=== PATIENT | female | born 1985 | race Two or more races ===

== ENCOUNTER → 2023-03-11 10:01 | Outpatient (BNVA) | payer MEDICAID, SELFPAY | PROVIDERS: Visit Provider Physician Assistant ==

== ENCOUNTER → 2023-07-15 10:28 | Outpatient (BNVA) | payer OTHER, SELFPAY | PROVIDERS: Visit Provider Physician Assistant Surgical ==

== ENCOUNTER 2023-09-14 08:18 | Outpatient (AMB) | payer OTHER, SELFPAY ==
--- NOTE | 2023-09-14 11:20 | MHC.OFFVISWM ---
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 Son No problems noted. Son No problems noted. Daughter Asthma Social History Alcohol intake: never Patient Tobacco Use Status: Never used Tobacco Coding
--- NOTE | 2023-09-14 11:38 | MHC.OFFVISWM ---
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 No Known Allergies Allergy (Verified 09/14/23 11:38) Medication List - Last Reconciled 09/14/23 by Marcellus Davis MD adalimumab (Humira(CF) Pen) mg subcut albuterol sulfate 90 mcg/actuation (Ventolin HFA) 2 puffs inhalation Q4-6H PRN albuterol sulfate mg inhalation melatonin 5 mg PO BEDTIME metformin 500 mg PO BID sertraline 100 mg PO DAILY trazodone 50 mg PO BEDTIME 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* 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 Details Start time: 11.30am, End time: 12.17pm ?I spent 42 minutes speaking with the patient on the phone plus an additional 5 minutes reviewing and updating records for a total of 47 minutes HPI Comments History of Present Illness Details Previous weight loss efforts: self diets Wakes up: 5am, Sleeps: 10pm Breakfast: 6am (yogurt) Lunch: 12pm (sandwich, or rice with chicken) Dinner: 6pm (rice and chicken) Snacks: 7-8pm crackers Exercise: has a home stationary bike and outside walking Fluids: Coffee 1 cp/day (sugar), tea: none, soda: Gingerale, ETOH: none, juice: 4 glasses per day PFSH Medical History (Updated 09/14/23 @ 11:50 by Marcellus Davis MD) Depression Arthritis Insomnia Non-insulin dependent type 2 diabetes mellitus Asthma Obesity Surgical History Hx of section Hx of cholecystectomy Family History Mother Lupus Arthritis Heart problem Asthma Father No problems noted. Son No problems noted. Son No problems noted. Daughter Asthma Social History Alcohol intake: never Patient Tobacco Use Status: Never used Tobacco Assessment & Plan Assessment & Plan (1) Obesity: Code(s): E66.9 - Obesity, unspecified Qualifiers: Obesity type: due to excess calories Obesity classification: adult class 2 (BMI 35 - 39.9) Serious obesity comorbidity presence: with serious comorbidity Body mass index: BMI 37.0-37.9 Qualified Code(s): E66.01 - Morbid (severe) obesity due to excess calories; Z68.37 - Body mass index [BMI] 37.0-37.9, adult Plan: 1.? Plan for lap sleeve gastrectomy. If diaphragmatic or ventral hernias are present at time of surgery, these will be repaired laparoscopically as well. Risks and complications were discussed in detail including possible conversion to an open procedure, anastomotic leak, bleeding requiring transfusion, small bowel obstruction, , DVT and pulmonary embolism, cardiac, or pulmonary complications, as senior living complications such as anastomotic ulcer, insufficient weight loss and vitamin deficiencies. I emphasized the importance of close follow-up, adherence to instructions and good communication. 2. Nutritional counseling. Start with 2 Isopure INFUSIONS protein (buy at [employer]) shakes (HALF scoop EACH in 8oz water) at 6am-8am and 9am-11am, 2 protein bars (Zone Perfect protein bars, buy at [employer]) at 12pm-2pm and 3pm-5pm, dinner at 6pm (8 forks of protein and 8 forks of salad/vegetables) AND one more protein bar after dinner at 8pm-10pm. So you do 2 protein shakes, p3 rotein bars and one meal per day. Meal to include lean meat (beef, fish, pork, turkey, chicken), or serbian yogurt, or egg whites, or beans with a salad with olive oil and fruits (berries, pears, apples, kiwi). Avoid salt, breads, potatoes, rice, pasta, desserts. 3. Each shake would be drunk slowly, like coffee in a period of 2 hours. You may add your coffee into your shakes if flavord match. 4. Cut each bar in 4 pieces and eat each piece in 30min ?to make each bar last 2 hours. 5. I emphasized the importance of measuring accurately the food portion and measure it when serving the food in plate 6. The meal portions include 8 full-size forks of meat and 8 full-size forks of salad. You always eat the meat portion but you can replace up to 4 forks for salad/vegetables with rice, potatoes or pasta, or a fruit ?if you like. The less you do it the better weight loss will be. 7. One full-size fork is what it can be scooped on the fork without falling aside and not what can be bit with the fork. Use regular forks like those you find in a typical restaurant. 8.? Please send me weight measurements as soon as possible and then once a week. Always include your diet and exercise plan. 9. Start stationary bike at a resistance level of 2.0 Increase level by 1.0 every 3 min to a max level of 8.0. Stay at this level for 3 min and then return to level 2.0 and repeat same steps until 300 calories are burned. Velocity target is 12mph and heart rate is 145 bpm. Goal is to burn 2000 calories per week on exercise 10. The best choice would be to purchase a stationary bike, elliptical or treadmill at home that can track calories. Let me know if you do so I can give you an exercise plan. 11.?It is important of avoiding and for at least 18 months postoperatively and has been discussed at the infosession. 12. Goal is to lose at least 1.5-2lbs per week 13. Goal to lose 10% of your weight before surgery, which is about 22lbs. Ultimate weight goal: 195lbs before surgery 14. Please follow the diet plan exactly without any change. If you don't like something about the plan or you feel hungry you need to communicate with me so I can help you revise the plan. You should not change the plan yourself. Orders: Orders Insulin Today E11.9 - Type 2 diabetes mellitus without complications, E66.9 - Obesity, unspecified, J45.909 - Unspecified asthma, uncomplicated, Z68.37 - Body mass index [BMI] 37.0-37.9, adult Hemoglobin A1c Today E11.9 - Type 2 diabetes mellitus without complications, E66.9 - Obesity, unspecified, J45.909 - Unspecified asthma, uncomplicated, Z68.37 - Body mass index [BMI] 37.0-37.9, adult Complete Blood Count Auto Diff Today E11.9 - Type 2 diabetes mellitus without complications, E66.9 - Obesity, unspecified, J45.909 - Unspecified asthma, uncomplicated, Z68.37 - Body mass index [BMI] 37.0-37.9, adult IRON PROFILE Today E11.9 - Type 2 diabetes mellitus without complications, E66.9 - Obesity, unspecified, J45.909 - Unspecified asthma, uncomplicated, Z68.37 - Body mass index [BMI] 37.0-37.9, adult Comprehensive Met. Panel Today E11.9 - Type 2 diabetes mellitus without complications, E66.9 - Obesity, unspecified, J45.909 - Unspecified asthma, uncomplicated, Z68.37 - Body mass index [BMI] 37.0-37.9, adult Zinc Today E11.9 - Type 2 diabetes mellitus without complications, E66.9 - Obesity, unspecified, J45.909 - Unspecified asthma, uncomplicated, Z68.37 - Body mass index [BMI] 37.0-37.9, adult Vitamin B1 Today E11.9 - Type 2 diabetes mellitus without complications, E66.9 - Obesity, unspecified, J45.909 - Unspecified asthma, uncomplicated, Z68.37 - Body mass index [BMI] 37.0-37.9, adult Vitamin D 25-OH Total Today E11.9 - Type 2 diabetes mellitus without complications, E66.9 - Obesity, unspecified, J45.909 - Unspecified asthma, uncomplicated, Z68.37 - Body mass index [BMI] 37.0-37.9, adult US abdomen comp w elastography Today E11.9 - Type 2 diabetes mellitus without complications, E66.9 - Obesity, unspecified, J45.909 - Unspecified asthma, uncomplicated, Z68.37 - Body mass index [BMI] 37.0-37.9, adult XR chest 2V Today E11.9 - Type 2 diabetes mellitus without complications, E66.9 - Obesity, unspecified, J45.909 - Unspecified asthma, uncomplicated, Z68.37 - Body mass index [BMI] 37.0-37.9, adult FL upper GI w air Today E11.9 - Type 2 diabetes mellitus without complications, E66.9 - Obesity, unspecified, J45.909 - Unspecified asthma, uncomplicated, Z68.37 - Body mass index [BMI] 37.0-37.9, adult H Pylori Breath Test Today E11.9 - Type 2 diabetes mellitus without complications, E66.9 - Obesity, unspecified, J45.909 - Unspecified asthma, uncomplicated, Z68.37 - Body mass index [BMI] 37.0-37.9, adult Lipid Panel Today E11.9 - Type 2 diabetes mellitus without complications, E66.9 - Obesity, unspecified, J45.909 - Unspecified asthma, uncomplicated, Z68.37 - Body mass index [BMI] 37.0-37.9, adult Vitamin B12 and Folate Today E11.9 - Type 2 diabetes mellitus without complications, E66.9 - Obesity, unspecified, J45.909 - Unspecified asthma, uncomplicated, Z68.37 - Body mass index [BMI] 37.0-37.9, adult C Reactive Protein Today E11.9 - Type 2 diabetes mellitus without complications, E66.9 - Obesity, unspecified, J45.909 - Unspecified asthma, uncomplicated, Z68.37 - Body mass index [BMI] 37.0-37.9, adult Vitamin A Today E11.9 - Type 2 diabetes mellitus without complications, E66.9 - Obesity, unspecified, J45.909 - Unspecified asthma, uncomplicated, Z68.37 - Body mass index [BMI] 37.0-37.9, adult TSH reflex Free T4 Today E11.9 - Type 2 diabetes mellitus without complications, E66.9 - Obesity, unspecified, J45.909 - Unspecified asthma, uncomplicated, Z68.37 - Body mass index [BMI] 37.0-37.9, adult Ferritin Today E11.9 - Type 2 diabetes mellitus without complications, E66.9 - Obesity, unspecified, J45.909 - Unspecified asthma, uncomplicated, Z68.37 - Body mass index [BMI] 37.0-37.9, adult ECG 12 lead EKG Today E11.9 - Type 2 diabetes mellitus without complications, E66.9 - Obesity, unspecified, J45.909 - Unspecified asthma, uncomplicated, Z68.37 - Body mass index [BMI] 37.0-37.9, adult Referrals Behavioral Health Referral E11.9 - Type 2 diabetes mellitus without complications, E66.9 - Obesity, unspecified, J45.909 - Unspecified asthma, uncomplicated, Z68.37 - Body mass index [BMI] 37.0-37.9, adult Nutrition/Dietitian Referral E11.9 - Type 2 diabetes mellitus without complications, E66.9 - Obesity, unspecified, J45.909 - Unspecified asthma, uncomplicated, Z68.37 - Body mass index [BMI] 37.0-37.9, adult Telehealth Telehealth Location of provider rendering services: practice address Location of patient: address on file Patient Identification confirmed using: Name, : Yes Telehealth method: voice only Patient verbally consented to treatment: Yes Patient verbally consented to billing insurance company: Yes Patient informed of any privacy concerns related to visit: Yes Minutes spent on Phone/Video with Pt.: 47 Coding Level of Care Code Tele [facility] Pt Level 4 (45925) Diagnoses Class 2 severe obesity due to excess calories with serious comorbidity and body mass index (BMI) of 37.0 to 37.9 in adult E66.01; Z68.37 Obesity type: due to excess calories Obesity classification: adult class 2 (BMI 35 - 39.9) Serious obesity comorbidity presence: with serious comorbidity Body mass index: BMI 37.0-37.9 Time Spent (min) 47 Comment With a Bahamian speaking american sign language interpreter
[2023-09-14 11:51] VITALS: BMI 37.3
== END 2023-09-14 12:18 | disposition home or self-care (01) ==
LOC: HO.HBS 08:18
PROVIDERS: Visit Provider Surgery
DX: E66.01 Morbid (severe) obesity due to excess calories (principal); Z68.37 Body mass index [BMI] 37.0-37.9, adult
CPT/HCPCS: 99204

== ENCOUNTER → 2023-09-14 08:18 | Outpatient (BNVA) | payer OTHER, SELFPAY | PROVIDERS: Visit Provider Surgery ==

== ENCOUNTER 2023-09-18 09:03 | Outpatient (REF) | payer OTHER, SELFPAY ==
--- NOTE | ~2023-09-18 | XR_ITS ---
EXAMINATION: XR CHEST CLINICAL INFORMATION: Obesity unspecified. COMPARISON: None available. TECHNIQUE: 3 views of the chest. FINDINGS: Moderate degenerative changes in the thoracic spine. No pleural effusion. There is no gross pneumothorax. Heart size is normal. No focal consolidation to suggest pneumonia. XR/XR chest 2V IMPRESSION: No evidence of pneumonia.
--- NOTE | 2023-09-18 09:21 | ECG_ITS ---
Test Reason : OBESITY Blood Pressure : / mmHG Vent. Rate : 085 BPM Atrial Rate : 085 BPM P-R Int : 150 ms QRS Dur : 070 ms QT Int : 362 ms P-R-T Axes : 038 024 025 degrees QTc Int : 430 ms Normal sinus rhythm Normal ECG No previous ECGs available Referred By: Marcellus Davis Electronically Signed By:ELIE PAGE
[2023-09-18 09:23] LABS: MANUAL DIFF FLAG NO
[2023-09-18 09:33] LABS: Basophils Percent Auto 0.6 % (0-2); Eosinophils Absolute Auto 0.1 X10*3/uL (0.0-0.4); Eosinophils Percent Auto 2.1 % (0-4); Hematocrit 35.6 % (37.0-47.0); Hemoglobin 11.7 g/dl (12.0-16.0); Imm Gran Abs Auto 0.02 X10*3/uL (0.00-0.03); Imm Gran Pct Auto 0.3 % (0.0-0.4); Lymphocytes Percent Auto 30.3 % (20-40); Mean Corpuscular HGB Conc 32.9 g/dl (31.0-35.0); Mean Corpuscular Hemoglobin 26.5 pg (27.0-33.0); Mean Corpuscular Volume 80.5 fL (80.0-98.0); Mean Platelet Volume 9.9 fL (9.4-12.3); Monocytes Absolute Auto 0.4 X10*3/uL (0.1-1.2); Monocytes Percent Auto 5.7 % (2-11); Neutrophils Absolute Auto 4.1 x10*3/uL (2.0-8.3); Platelet Count 243 X10*3/uL (160-400); Red Blood Count 4.42 X10*6/uL (4.20-5.50); Red Cell Distribution Width 13.3 % (11.0-16.0); White Blood Count 6.7 X10*3/uL (4.8-10.8)
[2023-09-18 09:40] LABS: Estimated Average Glucose 134 mg/dL; Hemoglobin A1c % 6.3 % (<6.0)
[2023-09-18 10:05] LABS: Alanine Aminotransferase 59 U/L (0-31); Alkaline Phosphatase 110 U/L (39-117); Anion Gap 13 (12-20); Aspartate Amino Transferase 28 U/L (5-31); Bilirubin Total 0.3 mg/dL (0.0-1.0); Blood Urea Nitrogen 12 mg/dL (9-16); C Reactive Protein 1.19 mg/dL (< or = 0.50); Calcium 9.5 mg/dL (8.4-10.2); Carbon Dioxide 28 mmol/L (22-29); Chloride 104 mmol/L (96-108); Cholesterol 172 mg/dL (<200); Estimated Glomerular Filt Rate > 60; Glucose Random 141 mg/dL (60-115); HDL Cholesterol 47 mg/dL (>40); Iron 52 mcg/dL (30-160); LDL Cholesterol Calculated 102 mg/dL (<100); Percent Iron Saturation 17 % (15-50); Potassium 3.9 mmol/L (3.3-5.1); Sodium 141 mmol/L (135-145); Total Iron Binding Capacity 300 mcg/dL (228-428); Total Protein 7.7 g/dL (6.5-8.0); Triglycerides 118 mg/dL (<150); Unsaturated Iron Binding 248 ug/dL
[2023-09-18 10:27] LABS: Ferritin 69 ng/mL (10-122); Insulin 54 uU/mL (2-29); Vitamin D 25-OH Total 10.9 ng/mL (>30)
[2023-09-18 10:30] LABS: Folate 9.4 ng/mL (> or = 4.0); Vitamin B12 271 pg/mL (200-900)
[2023-09-22 02:19] LABS: Zinc 79 mcg/dL (60-130)
[2023-09-23 05:49] LABS: Vitamin A 40 mcg/dL (38-98)
[2023-09-23 14:36] LABS: H Pylori Breath Test Negative (Negative)
[2023-09-26 15:34] LABS: Vitamin B1 7 nmol/L (8-30)
== END 2023-09-18 09:04 | disposition home or self-care (01) ==
LOC: HO.XRAY 09:03
PROVIDERS: Visit Provider Surgery
DX: Z11.2 Encounter for screening for other bacterial diseases (principal); E66.9 Obesity, unspecified; Z68.37 Body mass index [BMI] 37.0-37.9, adult; J45.909 Unspecified asthma, uncomplicated; E11.9 Type 2 diabetes mellitus without complications
CPT/HCPCS: 36415; 71046; 80053; 80061; 82306; 82607; 82728; 82746; 83013; 83036; 83525; 83540; 84425; 84443; 84590; 84630; 85025; 86140; 93005

== ENCOUNTER → 2023-09-18 09:21 | Outpatient (BNV) | payer OTHER, SELFPAY | PROVIDERS: Visit Provider Internal Medicine | DX: E66.9 Obesity, unspecified (principal); Z68.37 Body mass index [BMI] 37.0-37.9, adult | CPT/HCPCS: 93010 ==

== ENCOUNTER → 2023-10-02 08:10 | Outpatient (BNVA) | payer OTHER, SELFPAY | PROVIDERS: Visit Provider Surgery ==

== ENCOUNTER 2023-10-12 09:52 | Outpatient (AMB) | payer OTHER, SELFPAY ==
--- NOTE | 2023-10-12 10:01 | MHC.AMNUTRGE ---
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 Encouraged she discuss with surgeon. She doesn't enjoy vegetables. I provided recipe resources Last night for dinner ate a sandwich with butter and cheese. Educated pt on adding foods to her meals such as protein and veg. [facility] online classes: none , pt was having issues accessing them Dietary counseling reduction Diagnosis Nutrition problem #1 overweight/obesity As related to (etiology) #1 excess energy intake and physical inactivity As evidenced by (sign/symptom) #1 high BMI Monitoring/Goals Nutrition problem monitoring total energy intake, level of knowledge/skill, total PRO intake, total CHO intake, weight and oral fluids Outcome progress progressing Learning/Education Readiness to learn good Stages of change action Educational materials provided Yes Most Recent Diabetes Results: Cholesterol 172 mg/dL (<200) 09/18/23 HDL Cholesterol 47 mg/dL (>40) 09/18/23 Triglycerides 118 mg/dL (<150) 09/18/23 Creatinine 0.73 mg/dL (0.5-1.4) 09/18/23 Blood Urea Nitrogen 12 mg/dL (9-16) 09/18/23 Sodium 141 mmol/L (135-145) 09/18/23 Potassium 3.9 mmol/L (3.3-5.1) 09/18/23 Chloride 104 mmol/L (96-108) 09/18/23 Carbon Dioxide 28 mmol/L (22-29) 09/18/23 Calcium 9.5 mg/dL (8.4-10.2) 09/18/23 AST 28 U/L (5-31) 09/18/23 ALT 59 U/L (0-31) H 09/18/23 Total Protein 7.7 g/dL (6.5-8.0) 09/18/23 Albumin 4.0 g/dL (3.5-5.0) 09/18/23 [facility] Medical History (Updated 09/14/23 @ 11:50 by Marcellus Davis MD) Depression Arthritis Insomnia Non-insulin dependent type 2 diabetes mellitus Asthma Obesity Surgical History Hx of section Hx of cholecystectomy Family History Mother Lupus Arthritis Heart problem Asthma Father No problems noted. Son No problems noted. Son No problems noted. Daughter Asthma Social History Alcohol intake: never Patient Tobacco Use Status: Never used Tobacco Assessment & Plan Assessment & Plan (1) BMI 37.0-37.9, adult: Code(s): Z68.37 - Body mass index [BMI] 37.0-37.9, adult (2) Non-insulin dependent type 2 diabetes mellitus: Code(s): E11.9 - Type 2 diabetes mellitus without complications Plan will be seen again. will complete online classes before nutrition f/u Coding Level of Care Code Nutr Indiv Intake (29652) Diagnoses BMI 37.0-37.9, adult Z68.37 Non-insulin dependent type 2 diabetes mellitus E11.9 Time Spent (min) 30
== END 2023-10-12 10:26 | disposition home or self-care (01) ==
PROVIDERS: PCP Internal Medicine; Visit Provider Dietitian, Registered
DX: Z68.37 Body mass index [BMI] 37.0-37.9, adult (principal); E11.9 Type 2 diabetes mellitus without complications

== ENCOUNTER → 2023-10-12 09:52 | Outpatient (BNVA) | payer OTHER, SELFPAY | PROVIDERS: Visit Provider Physician Assistant Surgical | DX: E66.9 Obesity, unspecified (principal); E11.9 Type 2 diabetes mellitus without complications; Z68.37 Body mass index [BMI] 37.0-37.9, adult | CPT/HCPCS: 97802 ==

== ENCOUNTER 2023-10-14 10:39 | Outpatient (AMB) | payer OTHER, SELFPAY ==
--- NOTE | 2023-10-14 10:21 | MHC.WMTHER ---
Intake Intake Visit Reasons: VIDEO BH Intake Allergies No Known Allergies Allergy (Verified 09/14/23 11:38) [facility] Medical History (Updated 10/14/23 @ 14:04 by Janna Domínguez [facility]) Depression Arthritis Insomnia Non-insulin dependent type 2 diabetes mellitus Asthma Obesity Surgical History Hx of section Hx of cholecystectomy Family History Mother Lupus Arthritis Heart problem Asthma Father No problems noted. Son No problems noted. Son No problems noted. Daughter Asthma Social History Alcohol intake: never Patient Tobacco Use Status: Never used Tobacco Behavioral Health Assessment Weight Management Therapy Therapy Notes Details PT is a 38-year-old female who has come for a behavioral health assessment as part of a surgical weight loss program. The patient has disclosed that she is unsure about whether she wants to undergo the surgery. However, she has expressed her interest in a weight management program to improve her overall health as obesity is affecting her daily life. Although the scores from BES (Binge Eating Scale) indicate a lower risk of binge eating behaviors, her PHQ-9 score was high, requiring a follow-up to repeat the test. Presenting Concerns Referral Source WMP Provider. PT sees Dr Roe Reason for referral Completion of behavioral health assessment as part of process for weight-loss surgery. Precipitating Event Obesity. Living Situation Current Living Situation Own At risk of losing current housing? No Satisfied with current living situation? Yes Comments PT lives with partner and 3 children. Food/Weight/Diet Expectations of change Her initial goal is to lose 22lbs, which is 10% of her weight, before surgery. Her ultimate weight goal is 195lbs before surgery. But her main goal is to improve her health and be at a healthy weight. History/Relationship with food Pt reports she has a history of emotional eating, which has worsened over the past 3 years. She tends to overeat or eat more when stressed, depressed, or having problems. PT is also a picky eater and doesn't eat veggies. She is introducing these slowly into her diet and building new habits. History/Relationship with weight PT reported not being overweight as a child. She gained weight after getting and having children. Her weight fluctuated between 150lbs and 230lbs in the past 10 years. History/Relationship with dieting She had put herself on a diet where she reduced her intake of sugary drinks and snacks, and made it a habit to go on regular walks. However, she usually only followed these diets for 1-2 weeks at a time and lost 3-5 lbs during that period, which she gained back when she went back to her old eating habits. . The patient has reported that she is not adhering to the meal plan prescribed by Dr. Rendon. She stated that she does not like the bars but enjoys the shakes. Additionally, she is not following the recommended exercise regimen. She is doing only 15 minutes on a stationary bike and taking a 30-minute walk every morning. Social History Family history and relationship PT got 16 years ago and has 3 children. She has 1 brother, her mother is alive, but her father . She reported having good family relationships. Parental/Familial veneer matcher obligations PT has 3 children. They are 15, 14 and 9 Developmental history and status None reported. Social support None. Her is not in favor of her undergoing surgery, and she has not informed her family about it. Community support Providers. Jew/Spirituality The patient attends the [email or web address] and goes to the episcopalian for 5 days every week. Cultural/Ethnic information PT, who was born in [place], has been living in [place] for about 20 years. She mainly speaks Montserratian. Legal Involvement and History Current or historical involvement with the legal system? None reported. Education Highest grade completed 8th grade. Preferred learning style Visual Currently enrolled in educational program? No Interested in further educational program? Yes Educational Interests/Skills Pt would like to get her GED. Employment Employment Status Unemployed (Hasn't work since 2011.) Wants help to find employment? No Meaningful activities Listen to music, reading, watch tv. Financial Situation Describe current financial situation Occasional struggle Financial assistance? Food [place] Service Service? No Mental Health and Addiction Treatment Current/Past substance abuse? No Current/Past addictive behavior concerns? No Psychiatric history PT receives treatment at [facility]. Sees a therapist every month, and has a psychiatrist who sees her every 2 months. She has been diagnosed with depression and anxiety. Currently takes melatonin 5mg for sleep, sertraline 100mg for anxiety, and trazodone 50mg for sleep and depression. Never hospitalized for mental health and denies any concerns with self-harm and/or other harm. Medical and Physical Health Summary Additional Medical History not covered in history None reported Sexual History concerns None reported Physical exam in the last year? Yes Pain Screening Current pain? Yes Pain in the last few months? Yes Comments Patient is experiencing daily pain throughout her body and is currently undergoing evaluation for autoimmune disease. She also suffers from tendonitis in her hands, which causes pain and impairs her functioning. Medications Is the patient compliant with medications? Yes Does the patient have Dietrich Guardian in place? Not applicable Does the patient use complimentary health approaches? No Trauma/Abuse History History of trauma? No Questionnaires PHQ-9 Over the last 2 weeks, how often have you been bothered by any of the following problems? 1. Little interest or pleasure in doing things: more than half the days 2. Feeling down, depressed, or hopeless: more than half the days 3. Trouble falling or staying asleep, or sleeping too much: more than half the days 4. Feeling tired or having little energy: several days 5. Poor appetite or overeating: more than half the days 6. Feeling bad about yourself - or that you are a failure or have let yourself or your family down: several days 7. Trouble concentrating on things, such as reading the newspaper or watching television: more than half the days 8. Moving or speaking so slowly that other people could have noticed. Or the opposite - being so fidgety or restless that you have been moving around a lot more than usual: not at all 9. Thoughts that you would be better off or of hurting yourself in some way: not at all Total score: 12 Depression Screening Interpretation: Positive Depression Screening Done: Yes 65514 - PHQ-9 Billing: Yes Source: Developed by Drs. Asa Roberts, Jemima Gabriel, Fredis Ball and colleagues, with an educational amina from [employer]. Binge Eating Scale Group 1 A. I don't feel self-conscious about my wt. or body size when I'm with others. B. I feel concerned about how I look to others, but it normally does not make me fell disappointed with myself C. I do get self-conscious about my appearance and wt. which makes me feel disappointed in myself. D. I feel very self-conscious about my wt. and frequently I feel intense shame and disgust for myself. I try to avoid social contacts because of my self-consciousness. Response Group 1: C Group 2 A. I don't have any difficulty eating slowly in the proper manner. B. Although I seem to gobble down foods, I don't end up feeling stuffed because of eating to much. C. At times, I tend to eat quickly and then, I feel uncomfortably full afterwards. D. I have the habit of bolting down my food, without really chewing it. When this happens I usually feel uncomfortably stuffed because I've eaten to much. Response Group 2: A Group 3 A. I feel capable to control my eating urges when I want to. B. I feel like I have failed to control my eating more than the average person. C. I feel utterly helpless when it comes to feeling in control of my eating urges. D. Because I feel so helpless about controlling my eating I have become very desperate about trying to get control. Response Group 3: B Group 4 A. I don't have the habit of eating when I'm bored. B. I sometimes eat when I'm bored, but often I'm able to get busy and get my mind off food. C. I have a regular habit of eating when I'm bored, but occasionally, I can use some other activity to get my mind off eating. D. I have a strong habit of eating when I'm bored. Nothing seems to help me breath the habit. Response Group 4: B Group 5 A. I'm usually physically hungry when I eat something. B. Occasionally, I eat something on impulse even though I really am not hungry. C. I have the regular habit of eating foods, that I might not really enjoy, to satisfy a hungry feeling even though physically, I don't need the food. D. Although I'm not physically hungry, I get a hungry feeling in my mouth that only seems to be satisfied when I eat a food, like sandwich, that fills my mouth. Sometimes, when I eat the food to satisfy my mouth hunger, I then spit the food out so I won't gain weight. Response Group 5: B Group 6 A. I don't feel any guilt or self-hate after I overeat. B. After I overeat, occasionally I feel guilt or self-hate. C. Almost all the time I experience strong guilt or self-hate after I overeat. Response Group 6: B Group 7 A. I don't lose total control of my eating when dieting even after periods when I overeat. B. Sometimes when I eat a forbidden food on a diet, I feel like I blew it and eat even more. C. Frequently, I have the habit of saying to myself, I've blown it now, why not go all the way, when I overeat on a diet. When that happens I eat more. D. I have a regular habit of starting a strict diets for myself but I break the diets by going on an eating binge. My life seems to be either a feast or famine. Response Group 7: C Group 8 A. I rarely eat so much food that I feel uncomfortably stuffed afterwards. B. Usually about once a month, I each such a quantity of food, I end up feeling very stuffed. C. I have regular periods during the month when I eat large amounts of food, either at mealtime or at snacks. D. I eat so much food that I regularly feel quite uncomfortable after eating and sometimes a bit nauseous. Response Group 8: C Group 9 A. My level of calorie intake does not go up very high or go down very low on a regular basis. B. Sometimes after I overeat, I will try to reduce my caloric intake to almost nothing to compensate for the excess calories I've eaten. C. I have a regular habit of overeating during the night. It seems that my routine is not to be hungry in the morning but overeat in the evening. D. In my adult years, I have had week-long periods where I practically starve myself. This follows periods when I overeat. It seems I live a life of either feast or famine. Response Group 9: C Group 10 A. I usually am able to stop eating when I want to. I know when enough is enough. B. Every so often, I experience a compulsion to eat which I can't seem to control. C. Frequently, I experience strong urges to eat which I seem unable to control, but at other times I can control my eating urges. D. I feel incapable of controlling urges to eat. I have a fear of not being able to stop eating voluntarily. Response Group 10: A Group 11 A. I don't have any problem stopping eating when I feel full. B. I usually can stop eating when I feel full but occasionally overeat leaving me feeling uncomfortably stuffed. C. I have a problem stopping eating once I start and usually I feel uncomfortably stuffed after I eat a meal. D. Because I have a problem not being able to stop eating when I want, I sometimes have to induce vomiting to relieve my stuffed feeling. Response Group 11: B Group 12 A. I seem to eat just as much when I'm with others, Family social gatherings as when I'm by myself. B. Sometimes, when I'm with other persons, I don't eat as much as I want to eat because I'm self-conscious about my eating. C. Frequently, I eat only a small amount of food when others are present, because I'm very embarrassed about my eating. D. I feel so ashamed about overeating that I pick times to overeat when I know no one will see me. I feel like a closet eater. Response Group 12: A Group 13 A. I eat three meals a day with only an occasional between meal snack. B. I eat 3 meals a day, but I also normally snack between meals. C. When I am snacking heavily, I get in the habit of skipping regular meals. D. There are regular periods when I seem to be continually eating, with no planned meals. Response Group 13: C Group 14 A. I don't think much about trying to control unwanted eating urges. B. At least some of the time, I feel my thoughts are pre-occupied with trying to control my eating urges. C. I feel that frequently I spend much time thinking about how much I ate or about trying not to eat anymore. D. It seems to me that most of my waking hours are pre-occupied by thoughts about eating or not eating. I feel like I'm constantly struggling not to eat. Response Group 14: B Group 15 A. I don't think about food a great deal. B. I have strong craving for food but they last only for brief periods of time. C. I have days when I can't seem to think about anything else but food. D. Most of my days seem to be pre-occupied with thoughts about food. I feel like I live to eat. Response Group 15: C Group 16 A. I usually know whether or not I'm physically hungry. I take the right portion of food to satisfy me. B. Occasionally, I feel uncertain about knowing whether or not I'm physically hungry. A these times it's hard to know how much food I should take to satisfy me. C. Even though I might know how many calories I should eat, I don't have any idea what is a normal amount of food for me. Response Group 16: A Binge Eating Score: 18 Score less than 17 Minimal Risk Score between 18-26 Moderate Risk Score between 27-46 High Risk Assessment & Plan Assessment & Plan (1) Depression: Code(s): F32.A - Depression, unspecified Qualifiers: Depression Type: major depressive disorder Major depression recurrence: recurrent Active/Remission status: remission status unspecified Qualified Code(s): F33.9 - Major depressive disorder, recurrent, unspecified (2) Anxiety disorder, unspecified: Code(s): F41.9 - Anxiety disorder, unspecified Plan The patient was not cleared today. She will follow up with me again in about a month, during which we will offer support with habit-building and strategies for emotional eating. The patient has been encouraged to discuss her questions, doubts, and concerns about bariatric surgery with her provider, as she is uncertain about undergoing the procedure. Next yifan: 11/18/23 at 9am. Telehealth Telehealth Location of provider rendering services: other Location of patient: address on file Patient Identification confirmed using: Name, : Yes Telehealth method: voice only Patient verbally consented to treatment: Yes Patient verbally consented to billing insurance company: Yes Patient informed of any privacy concerns related to visit: No Minutes spent on Phone/Video with Pt.: 60 Coding Level of Care Code New Pt Tele Psy Diag Eval ([id number]) Patient Type New Diagnoses Recurrent major depressive disorder, remission status unspecified F33.9 Depression Type: major depressive disorder Major depression recurrence: recurrent Active/Remission status: remission status unspecified Anxiety disorder, unspecified F41.9 Time Spent (min) 60
== END 2023-10-14 11:00 | disposition home or self-care (01) ==
LOC: HO.HBST 10:39
PROVIDERS: Visit Provider Counselor Mental Health
DX: F33.9 Major depressive disorder, recurrent, unspecified (principal); F41.9 Anxiety disorder, unspecified
CPT/HCPCS: 90791

== ENCOUNTER → 2023-10-14 10:39 | Outpatient (BNVA) | payer OTHER, SELFPAY | PROVIDERS: Visit Provider Counselor Mental Health ==

== ENCOUNTER 2023-11-09 08:08 | Outpatient (AMB) | payer OTHER, SELFPAY ==
--- NOTE | 2023-11-09 10:28 | MHC.OFFVISWM ---
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* HPI Details Start time: 10.22am, End time: 10.47am ?I spent 20 minutes speaking with the patient on the phone plus an additional 5 minutes reviewing and updating records for a total of 25 minutes HPI Comments History of Present Illness Details Overall weight loss: 3.8lbs, or 1.74% TBWL Is doing 2 Isopure Infusions protein shakes per day (1/2 scoop in water), 2 Zone Perfect protein bars and one meal Exercise: walking outside [facility] Medical History (Updated 10/14/23 @ 20:25 by Marcellus Davis MD) Depression Arthritis Insomnia Non-insulin dependent type 2 diabetes mellitus Asthma Obesity Surgical History Hx of section Hx of cholecystectomy Family History Mother Lupus Arthritis Heart problem Asthma Father No problems noted. Son No problems noted. Son No problems noted. Daughter Asthma Social History Alcohol intake: never Patient Tobacco Use Status: Never used Tobacco Assessment & Plan Assessment & Plan (1) Obesity: Code(s): E66.9 - Obesity, unspecified Qualifiers: Obesity type: due to excess calories Obesity classification: adult class 2 (BMI 35 - 39.9) Serious obesity comorbidity presence: with serious comorbidity Body mass index: BMI 37.0-37.9 Qualified Code(s): E66.01 - Morbid (severe) obesity due to excess calories; Z68.37 - Body mass index [BMI] 37.0-37.9, adult Plan: 1. Nutritional counseling. Start with 2 Isopure INFUSIONS protein (buy at [employer]) shakes (HALF scoop EACH in 8oz water) at 6am-8am and 9am-11am, 2 protein bars (Zone Perfect protein bars, buy at [employer]) at 12pm-2pm and 3pm-5pm, dinner at 6pm (8 forks of protein and 8 forks of salad/vegetables) AND one more protein bar after dinner at 8pm-10pm. So you do 2 protein shakes, 3 protein bars and one meal per day. Meal to include lean meat (beef, fish, pork, turkey, chicken), or latvian yogurt, or egg whites, or beans with a salad with olive oil and fruits (berries, pears, apples, kiwi). Avoid salt, breads, potatoes, rice, pasta, desserts. 2. Each shake would be drunk slowly, like coffee in a period of 2 hours. You may add your coffee into your shakes if flavord match. 3. Cut each bar in 4 pieces and eat each piece in 30min ?to make each bar last 2 hours. 4. I emphasized the importance of measuring accurately the food portion and measure it when serving the food in plate 5. The meal portions include 8 full-size forks of meat and 8 full-size forks of salad. You always eat the meat portion but you can replace up to 4 forks for salad/vegetables with rice, potatoes or pasta, or a fruit ?if you like. The less you do it the better weight loss will be. 6. One full-size fork is what it can be scooped on the fork without falling aside and not what can be bit with the fork. Use regular forks like those you find in a typical restaurant. 7.? Please send me weight measurements as soon as possible and then once a week. Always include your diet and exercise plan. 8. Start walking daily tracking calories with a goal of burning 300 calories per day, daily 9. The best choice would be to purchase a stationary bike, elliptical or treadmill at home that can track calories. Let me know if you do so I can give you an exercise plan. 10.?It is important of avoiding and for at least 18 months postoperatively and has been discussed at the infosession. 11. Goal is to lose at least 1.5-2lbs per week 12. Please follow the diet plan exactly without any change. If you don't like something about the plan or you feel hungry you need to communicate with me so I can help you revise the plan. You should not change the plan yourself. Telehealth Telehealth Location of provider rendering services: practice address Location of patient: address on file Patient Identification confirmed using: Name, : Yes Telehealth method: voice only Patient verbally consented to treatment: Yes Patient verbally consented to billing insurance company: Yes Patient informed of any privacy concerns related to visit: Yes Minutes spent on Phone/Video with Pt.: 25 Coding Level of Care Code Tele Est Pt Level 3 (00620) Diagnoses Class 2 severe obesity due to excess calories with serious comorbidity and body mass index (BMI) of 37.0 to 37.9 in adult E66.01; Z68.37 Obesity type: due to excess calories Obesity classification: adult class 2 (BMI 35 - 39.9) Serious obesity comorbidity presence: with serious comorbidity Body mass index: BMI 37.0-37.9 Time Spent (min) 25 Comment With a Faroese speaking beef 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
[2023-11-09 10:30] VITALS: BMI 36.7
== END 2023-11-09 10:48 | disposition home or self-care (01) ==
LOC: HO.HBS 08:08
PROVIDERS: Visit Provider Surgery
DX: E66.01 Morbid (severe) obesity due to excess calories (principal); Z68.37 Body mass index [BMI] 37.0-37.9, adult
CPT/HCPCS: 99213

== ENCOUNTER → 2023-11-09 08:08 | Outpatient (BNVA) | payer OTHER, SELFPAY | PROVIDERS: Visit Provider Surgery ==

== ENCOUNTER 2023-11-18 09:12 | Outpatient (AMB) | payer OTHER, SELFPAY ==
--- NOTE | 2023-11-18 09:15 | A.OFFWM_ITS ---
Intake Intake Visit Reasons: VIDEO F/U Allergies No Known Allergies Allergy (Verified 09/14/23 11:38) [facility] Medical History (Updated 10/14/23 @ 20:25 by Marcellus Davis MD) Depression Arthritis Insomnia Non-insulin dependent type 2 diabetes mellitus Asthma Obesity Surgical History Hx of section Hx of cholecystectomy Family History Mother Lupus Arthritis Heart problem Asthma Father No problems noted. Son No problems noted. Son No problems noted. Daughter Asthma Social History Alcohol intake: never Patient Tobacco Use Status: Never used Tobacco Behavioral Health Assessment Weight Management Therapy Therapy Notes Details - PT presents for a follow up. Client wa s seen for intake on 10/14 and was not cleared at that time. Today patient reports her weight-loss is slow, she started the program on July and has lost 3Lbs (Today her weight at home was 213Lbs). PT indicates she currently has high stress levels due to family matters, financial strain, and is not sleeping well. On the other hand PT reports she walks almost every day for about an hour. She tries to follow meal plan but doesn't enjoy bars and dinner still a challenge because she is not always hungry. She has been waking up hungry and at times has to eat a yogurt. INTERVENTIONS: Cognitive processing therapy, identification of behavioral patterns around food, identified active Sx and provided with coping strategies for depression management and for habit building. Client was provided education and gently challenged about commitment with out program. Completed ABC analysis for current triggers and responses. Provided constructive feedback. Validated and normalized feelings, RESPONSE: PT was cooperative, disclosed challenges with plan and personal challenges too. She still not sure if bariatric surgery is the right move for her but is also aware of her need to loss weight for her health. PLAN: we will f/up again in about a month. Advised client to keep a food log and to reach her current therapist for support with current depression. Presenting Concerns Referral Source WMP Provider. PT sees Dr Roe Reason for referral Completion of behavioral health assessment as part of process for weight-loss surgery. Precipitating Event Obesity. Living Situation Current Living Situation Own At risk of losing current housing? No Satisfied with current living situation? Yes Comments PT lives with partner and 3 children. Food/Weight/Diet Expectations of change Her initial goal is to lose 22lbs, which is 10% of her weight, before surgery. Her ultimate weight goal is 195lbs before surgery. But her main goal is to improve her health and be at a healthy weight. History/Relationship with food Pt reports she has a history of emotional eating, which has worsened over the past 3 years. She tends to overeat or eat more when stressed, depressed, or having problems. PT is also a picky eater and doesn't eat veggies. She is introducing these slowly into her diet and building new habits. History/Relationship with weight PT reported not being overweight as a child. She gained weight after getting and having children. Her weight fluctuated between 150lbs and 230lbs in the past 10 years. History/Relationship with dieting She had put herself on a diet where she reduced her intake of sugary drinks and snacks, and made it a habit to go on regular walks. However, she usually only followed these diets for 1-2 weeks at a time and lost 3-5 lbs during that period, which she gained back when she went back to her old eating habits. . The patient has reported that she is not adhering to the meal plan prescribed by Dr. Rendon. She stated that she does not like the bars but enjoys the shakes. Additionally, she is not following the recommended exercise regimen. She is doing only 15 minutes on a stationary bike and taking a 30-minute walk every morning. Binge Eating Do you frequently eat large amounts of food in short periods of time, not feeling physically hungry? Yes Do you feel out of control when you eat a large amount of food in a short period of time? No Do you eat large amounts of food rapidly and typically alone? No Night Eating Do you wake up at least once during the night to eat? No If you wake up in the night, do you find that it is necessary to eat something in order to fall back asleep? Yes Do you have little or no appetite in the morning and feel very hungry in the evening, often overeating between dinner and when you go to bed? No Social History Family history and relationship PT got 16 years ago and has 3 children. She has 1 brother, her mother is alive, but her father . She reported having good family relationships. 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 They are 15, 14 and 9 Developmental history and status None reported. Social support None. Her is not in favor of her undergoing surgery, and she has not informed her family about it. Community support Providers. Gnosticist/Spirituality The patient attends the [employer] and goes to the quaker for 5 days every week. Cultural/Ethnic information PT, who was born in [place], has been living in [place] for about 20 years. She mainly speaks Swedish. Legal Involvement and History Current or historical involvement with the legal system? None reported. Education Highest grade completed 8th grade. Preferred learning style Visual Currently enrolled in educational program? No Interested in further educational program? Yes Educational Interests/Skills Pt would like to get her GED. Employment Employment Status Unemployed (Hasn't work since 2011.) Wants help to find employment? No Meaningful activities Listen to music, reading, watch tv. Financial Situation Describe current financial situation Occasional struggle Financial assistance? Food [employer] Service? No Mental Health and Addiction Treatment Current/Past substance abuse? No Current/Past addictive behavior concerns? No Psychiatric history PT receives MH treatment at [facility]. Sees a therapist every month, and has a psychiatrist who sees her every 2 months. She has been diagnosed with depression and anxiety. Currently takes melatonin 5mg for sleep, sertraline 100mg for anxiety, and trazodone 50mg for sleep and depression. Never hospitalized for mental health and denies any concerns with self-harm and/or other harm. Medical and Physical Health Summary Additional Medical History not covered in history None reported Sexual History concerns None reported Physical exam in the last year? Yes Pain Screening Current pain? Yes Pain in the last few months? Yes Comments Patient is experiencing daily pain throughout her body and is currently undergoing evaluation for autoimmune disease. She also suffers from tendonitis in her hands, which causes pain and impairs her functioning. Medications Is the patient compliant with medications? Yes Does the patient have Dietrich Guardian in place? Not applicable Does the patient use complimentary health approaches? No Trauma/Abuse History History of trauma? No Questionnaires PHQ-9 Over the last 2 weeks, how often have you been bothered by any of the following problems? 1. Little interest or pleasure in doing things: several days 2. Feeling down, depressed, or hopeless: several days 3. Trouble falling or staying asleep, or sleeping too much: several days (PT takes meds for sleeping, and spite this she still has days that is hard falling alsleep.) 4. Feeling tired or having little energy: nearly every day 5. Poor appetite or overeating: several days (Poor appetite.) 6. Feeling bad about yourself - or that you are a failure or have let yourself or your family down: more than half the days 7. Trouble concentrating on things, such as reading the newspaper or watching television: several days 8. Moving or speaking so slowly that other people could have noticed. Or the opposite - being so fidgety or restless that you have been moving around a lot more than usual: several days 9. Thoughts that you would be better off or of hurting yourself in some way: not at all Total score: 11 Depression Screening Interpretation: Positive Depression Screening Done: Yes 00660 - PHQ-9 Billing: Yes Source: Developed by Drs. Asa Roberts, Jemima Gabriel, Fredis Ball and colleagues, with an educational amina from [employer]. Assessment & Plan Assessment & Plan (1) Depression: Code(s): F32.A - Depression, unspecified Qualifiers: Depression Type: major depressive disorder Major depression recurrence: recurrent Active/Remission status: remission status unspecified Qualified Code(s): F33.9 - Major depressive disorder, recurrent, unspecified (2) Anxiety disorder, unspecified: Code(s): F41.9 - Anxiety disorder, unspecified Plan PT not cleared. She is currently dealing with active Sx of depression and scores from PHQ-9 from today still shows active Sx, Also, it is uncertain her commitment with the necessary behavioral changes for a successful post-op journey. Homework: keep a food journal. We will follow up in 1 month. Next yifan 12/22 at 9am Telehealth Telehealth Location of provider rendering services: other Location of patient: address on file Patient Identification confirmed using: Name, : Yes Telehealth method: voice only Patient verbally consented to treatment: Yes Patient verbally consented to billing insurance company: Yes Patient informed of any privacy concerns related to visit: No Minutes spent on Phone/Video with Pt.: 50 Coding Level of Care Code Established Pt Tele Psytx 45 mins ([id number]) Patient Type Established Diagnoses Recurrent major depressive disorder, remission status unspecified F33.9 Depression Type: major depressive disorder Major depression recurrence: recurrent Active/Remission status: remission status unspecified Anxiety disorder, unspecified F41.9 Time Spent (min) 50
== END 2023-11-18 10:00 | disposition home or self-care (01) ==
LOC: HO.HBST 09:12
PROVIDERS: Visit Provider Counselor Mental Health
DX: F33.9 Major depressive disorder, recurrent, unspecified (principal); F41.9 Anxiety disorder, unspecified
CPT/HCPCS: 90834

== ENCOUNTER → 2023-11-18 09:12 | Outpatient (BNVA) | payer OTHER, SELFPAY | PROVIDERS: Visit Provider Counselor Mental Health ==

== ENCOUNTER 2023-12-03 09:43 | Outpatient (REF) | payer OTHER, SELFPAY ==
--- NOTE | ~2023-12-03 | US_ITS ---
EXAMINATION: US COMPLETE ABDOMEN WITH LIVER ELASTOGRAPHY CLINICAL INFORMATION: Obesity COMPARISON: None available. TECHNIQUE: Real-time imaging of the abdominal viscera. Noninvasive ultrasound liver fibrosis assessment is performed using Horace ElastPQ point quantification shear wave elastography (2D-SWE) with a C5-2 MHz transducer. Multiple elastography samples are obtained. FINDINGS: PANCREAS: The visualized pancreatic head and body are normal in appearance. The remainder of the pancreas is obscured from visualization by the overlying bowel gas. ABDOMINAL AORTA: The proximal, middle, and distal aortic segments are normal in caliber. INFERIOR VENA CAVA: Visualized portions are normal. LIVER: Liver echotexture is increased. Liver is normal in size and contour. No focal lesion or intrahepatic biliary duct dilatation. The right lobe measures 15 cm in length. The left lobe measures 12 cm in length. Portal flow is normal/hepatopedal Shear wave liver elastography median stiffness is 1.2 m/s (reference: normal median stiffness is 1.3 m/s or less). IQR/median stiffness to assess sampling precision is 0.02 (reference: good quality data set is IQR/median stiffness of 0.15 or less). GALLBLADDER: Surgically removed COMMON BILE DUCT: Normal in caliber measuring 0.8 cm in diameter. RIGHT KIDNEY: Normal. No hydronephrosis. No renal calculi or focal parenchymal lesions. The kidney measures 11 cm in maximum dimension. LEFT KIDNEY: Normal. No hydronephrosis. No renal calculi or focal parenchymal lesions. The kidney measures 11 cm in maximum dimension. SPLEEN: Normal. The spleen measures 11 cm in maximum dimension. FREE FLUID: None. US/US abdomen comp w elastography IMPRESSION: 1. Impression: Echogenic normal size liver. Limited visualization of the tail of the pancreas. 2. Liver elastography: Normal liver stiffness. Adequate liver sampling. REFERENCE: Society of Radiologists in Ultrasound Liver Stiffness Thresholds (2020): LIVER STIFFNESS THRESHOLDS: *Liver Stiffness equal or less than 1.3 m/s: High probability of being normal. *Liver Stiffness less than 1.7 m/s: In the absence of other known clinical signs, rules out compensated advanced chronic liver disease. *Liver Stiffness 1.7-2.1 m/s: Suggestive of compensated advanced chronic liver disease but need further test for confirmation. *Liver Stiffness over 2.1 m/s: Rules in compensated advanced chronic liver disease. *Liver Stiffness over 2.4 m/s: Suggestive of clinically significant portal hypertension. QUALITY OF DATA SET: *IQR/Median value equal or less than 0.15 implies a quality data set. *IQR/Median value over 0.15 implies a poor quality data set. SIGNIFICANT CHANGE FROM PRIOR EXAM: Significant change if liver stiffness measurement is 10% or greater from prior exam. OTHER CONSIDERATIONS: The stage of liver fibrosis may be overestimated in the setting of acute hepatitis, liver inflammation, elevated liver function tests, hepatic vascular congestion, obstructive cholestasis, non-fasting state, and infiltrative diseases such as amyloidosis and lymphoma. In some patients with NAFLD, the liver stiffness thresholds for compensated advanced chronic liver disease may be lower. In causes other than viral hepatitis and NAFLD, liver stiffness thresholds are not well established.
== END 2023-12-03 09:44 | disposition home or self-care (01) ==
LOC: HO.US 09:43
PROVIDERS: Visit Provider Surgery
DX: E66.9 Obesity, unspecified (principal); J45.909 Unspecified asthma, uncomplicated; E11.9 Type 2 diabetes mellitus without complications; Z68.37 Body mass index [BMI] 37.0-37.9, adult
CPT/HCPCS: 76700; 76981

== ENCOUNTER 2023-12-04 15:12 | Outpatient (AMB) | payer OTHER, SELFPAY ==
--- NOTE | 2023-12-04 15:09 | MHC.OFFVISWM ---
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* HPI Details Start time: 2.54pm, End time: 3.24pm ?I spent 25 minutes speaking with the patient on the phone plus an additional 5 minutes reviewing and updating records for a total of 30 minutes HPI Comments History of Present Illness Details Overall weight loss: 11.3 lbs, or 5.19% TBWL Is doing 2 Isopure Infusions protein shakes, 2 Zone Perfect protein bars and one meal (4 forks of protein and 4 forks of salad or vegetables) Exercise: walking outside [facility] Medical History (Updated 10/14/23 @ 20:25 by Marcellus Davis MD) Depression Arthritis Insomnia Non-insulin dependent type 2 diabetes mellitus Asthma Obesity Surgical History Hx of section Hx of cholecystectomy Family History Mother Lupus Arthritis Heart problem Asthma Father No problems noted. Son No problems noted. Son No problems noted. Daughter Asthma Social History Alcohol intake: never Patient Tobacco Use Status: Never used Tobacco Assessment & Plan Assessment & Plan (1) Obesity: Code(s): E66.9 - Obesity, unspecified Qualifiers: Obesity type: due to excess calories Obesity classification: adult class 2 (BMI 35 - 39.9) Serious obesity comorbidity presence: with serious comorbidity Body mass index: BMI 37.0-37.9 Qualified Code(s): E66.01 - Morbid (severe) obesity due to excess calories; Z68.37 - Body mass index [BMI] 37.0-37.9, adult Plan: 1. Continue same nutritional plan of 2 Isopure Infusions protein shakes, 2 Zone Perfect protein bars and one meal (4 forks of protein and 4 forks of salad or vegetables) 2. Exercise: continue walking outside as often as possible 3. Consider purchasing a stationary bike at home. It will help her have a better weight loss 4. Continue to send me weight measurements weekly measurements on Mondays Telehealth Telehealth Location of provider rendering services: practice address Location of patient: address on file Patient Identification confirmed using: Name, : Yes Telehealth method: voice only Patient verbally consented to treatment: Yes Patient verbally consented to billing insurance company: Yes Patient informed of any privacy concerns related to visit: Yes Minutes spent on Phone/Video with Pt.: 30 Coding Level of Care Code Tele Est Pt Level 4 (98908) Diagnoses Class 2 severe obesity due to excess calories with serious comorbidity and body mass index (BMI) of 37.0 to 37.9 in adult E66.01; Z68.37 Obesity type: due to excess calories Obesity classification: adult class 2 (BMI 35 - 39.9) Serious obesity comorbidity presence: with serious comorbidity Body mass index: BMI 37.0-37.9 Time Spent (min) 30 Comment With a Greek speaking extermination supervisor
[2023-12-04 15:13] VITALS: BMI 35.4
== END 2023-12-04 15:26 | disposition home or self-care (01) ==
PROVIDERS: Visit Provider Surgery
DX: E66.01 Morbid (severe) obesity due to excess calories (principal); Z68.37 Body mass index [BMI] 37.0-37.9, adult
CPT/HCPCS: 99214

== ENCOUNTER → 2023-12-04 15:12 | Outpatient (BNVA) | payer OTHER, SELFPAY | PROVIDERS: Visit Provider Surgery ==

== ENCOUNTER 2023-12-23 09:00 | Outpatient (AMB) | payer OTHER, SELFPAY ==
--- NOTE | 2023-12-23 09:14 | MHC.WMTHER ---
Intake Intake Visit Reasons: VIDEO BH F/U Allergies No Known Allergies Allergy (Verified 09/14/23 11:38) [facility] Medical History (Updated 10/14/23 @ 20:25 by Marcellus Davis MD) Depression Arthritis Insomnia Non-insulin dependent type 2 diabetes mellitus Asthma Obesity Surgical History Hx of section Hx of cholecystectomy Family History Mother Lupus Arthritis Heart problem Asthma Father No problems noted. Son No problems noted. Son No problems noted. Daughter Asthma Social History Alcohol intake: never Patient Tobacco Use Status: Never used Tobacco Behavioral Health Assessment Weight Management Therapy Therapy Notes Details PT presents for a follow up via Telehealth. Kasey reports she has been dealing with asthma due to a respiratory infection leading to being hospitalized and taking medication that have impacted her weight. PT states she feels frustrated about not being able to loss weight and trying to walk outside 4-5 days at week for about an hour. PT did not complete the food intake record as advised. But states she fells hungry and not satisfied with current meal plan. Pt also reports she has not been able to complete the nutricion classes. The client stated they find it challenging to follow the instructions from their Weight Management Program (WMP) provider, which has been contributing to their stress levels. ASSESSMENT AND INTERVENTION During the 60-minute session, the client's affect was notably depressed, and their mood was described as sad. However, their speech was normal, and their physical appearance was appropriate for the session. The client's behavior was humble throughout the interaction. We administered the PHQ9, which confirmed the presence of active symptoms of depression. Cognitive Processing Therapy (CPT) techniques were employed to help the client identify and address sources of their depression and stressors. Coping skills for symptom management were also discussed and practiced during the session. Presenting Concerns Referral Source WMP Provider. PT sees Dr Roe Reason for referral Completion of behavioral health assessment as part of process for weight-loss surgery. Precipitating Event Obesity. Questionnaires PHQ-9 Over the last 2 weeks, how often have you been bothered by any of the following problems? 1. Little interest or pleasure in doing things: more than half the days 2. Feeling down, depressed, or hopeless: several days 3. Trouble falling or staying asleep, or sleeping too much: more than half the days (Trouble falling) 4. Feeling tired or having little energy: nearly every day 5. Poor appetite or overeating: nearly every day (Poor appetite) 6. Feeling bad about yourself - or that you are a failure or have let yourself or your family down: several days 7. Trouble concentrating on things, such as reading the newspaper or watching television: several days 8. Moving or speaking so slowly that other people could have noticed. Or the opposite - being so fidgety or restless that you have been moving around a lot more than usual: several days (distracted and Sad.) 9. Thoughts that you would be better off or of hurting yourself in some way: not at all Total score: 14 Depression Screening Interpretation: Positive Depression Screening Done: Yes 25736 - PHQ-9 Billing: Yes Source: Developed by Drs. Asa Roberts, Jemima Gabriel, Fredis Ball and colleagues, with an educational amina from [employer]. Assessment & Plan Assessment & Plan (1) Depression: Code(s): F32.A - Depression, unspecified Qualifiers: Depression Type: major depressive disorder Major depression recurrence: recurrent Active/Remission status: remission status unspecified Qualified Code(s): F33.9 - Major depressive disorder, recurrent, unspecified (2) Anxiety disorder, unspecified: Code(s): F41.9 - Anxiety disorder, unspecified Plan F/up in 2 weeks. Next yifan: 01/05 at 9am. We will focus on enhancing the client's coping skills, particularly in managing the stress associated with their health issues and WMP instructions. Additionally, collaboration with the WMP-provider will be initiated to adjust the client's care plan to better suit their mental health needs and to communicate client's concerns regarding the meal plan. Regular monitoring of depressive symptoms will continue through periodic administration of the PHQ9. The client is encouraged to engage in daily physical activity as tolerated and to maintain a regular sleep schedule to support overall mental health. Pt not cleared. Telehealth Telehealth [facility]health [facility] Location of provider rendering services: other (Home office. [place], [place]) Location of patient: address on file Patient Identification confirmed using: Name, : Yes Telehealth method: video Patient verbally consented to treatment: Yes Patient verbally consented to billing insurance company: Yes Patient informed of any privacy concerns related to visit: No Minutes spent on Phone/Video with Pt.: 60 Coding Level of Care Code Established Pt Tele Psytx >53 mins ([id number]) Patient Type Established Diagnoses Recurrent major depressive disorder, remission status unspecified F33.9 Depression Type: major depressive disorder Major depression recurrence: recurrent Active/Remission status: remission status unspecified Anxiety disorder, unspecified F41.9 Time Spent (min) 60
== END 2023-12-23 10:01 | disposition home or self-care (01) ==
LOC: HO.HBST 09:07
PROVIDERS: Visit Provider Counselor Mental Health
DX: F33.9 Major depressive disorder, recurrent, unspecified (principal); F41.9 Anxiety disorder, unspecified
CPT/HCPCS: 90837

== ENCOUNTER → 2023-12-23 09:00 | Outpatient (BNVA) | payer OTHER, SELFPAY | PROVIDERS: Visit Provider Counselor Mental Health ==

== ENCOUNTER → 2024-01-06 09:06 | Outpatient (BNVA) | payer OTHER, SELFPAY | PROVIDERS: Visit Provider Counselor Mental Health ==

== ENCOUNTER → 2024-01-06 09:06 | Outpatient (AMB) | payer OTHER, SELFPAY ==
--- NOTE | 2024-01-06 09:28 | A.OFFWM_ITS ---
Intake Intake Visit Reasons: VIDEO BH F/U Allergies No Known Allergies Allergy (Verified 09/14/23 11:38) PENDING SALE TO [facility] Medical History (Updated 10/14/23 @ 20:25 by Marcellus Davis MD) Depression Arthritis Insomnia Non-insulin dependent type 2 diabetes mellitus Asthma Obesity Surgical History Hx of section Hx of cholecystectomy Family History Mother Lupus Arthritis Heart problem Asthma Father No problems noted. Son No problems noted. Son No problems noted. Daughter Asthma Social History Alcohol intake: never Patient Tobacco Use Status: Never used Tobacco Behavioral Health Assessment Weight Management Therapy Therapy Notes Details Pt presents for a follow up via telehealth. During our 60-minute phone session, the client discussed her recent progress and challenges. She expressed satisfaction with some of the strategies implemented since our last meeting but also shared her concerns regarding communication with her healthcare provider, Dr. Rendon. The client felt that her messages were not being fully understood, leading to some frustration. We processed and discussed ways to enhance clarity in her communication. Furthermore, she is motivated to improve her physical health and has been exploring different methods to incorporate more activity into her daily routine. We worked in habit building and goal setting, for increasing her physical activity, which will also aid in her weight loss efforts. Resources and strategies for habit change that align with her lifestyle and preferences were provided. The client was at home during our session and engaged actively over the phone. Her speech was clear and coherent, and she maintained a calm mood throughout the session. We will meet in 3 weeks again for support. Presenting Concerns Referral Source [facility] Provider. PT sees Dr Roe Reason for referral Completion of behavioral health assessment as part of process for weight-loss surgery. Precipitating Event Obesity. Food/Weight/Diet Expectations of change Starting weight: 217 lbs. Current weight: 209 lbs. Target weight before surgery: 195 lbs. Assessment & Plan Assessment & Plan (1) Depression: Code(s): F32.A - Depression, unspecified Qualifiers: Depression Type: major depressive disorder Major depression recurrence: recurrent Active/Remission status: remission status unspecified Qualified Code(s): F33.9 - Major depressive disorder, recurrent, unspecified (2) Anxiety disorder, unspecified: Code(s): F41.9 - Anxiety disorder, unspecified Plan Follow up in 2 weeks, via telehealth. We will continue working in habit building, behavioral activation and communication skills. Next yifan: 01/27/24 at 9 am. Telehealth Telehealth Telehealth Platform: [employer] Location of provider rendering services: other (Home office. [place], [place]) Location of patient: address on file Patient Identification confirmed using: Name, : Yes Telehealth method: voice only Patient verbally consented to treatment: Yes Patient verbally consented to billing insurance company: Yes Patient informed of any privacy concerns related to visit: No Minutes spent on Phone/Video with Pt.: 60 Coding Level of Care Code Established Pt Tele Psytx >53 mins (25710) Patient Type Established Diagnoses Recurrent major depressive disorder, remission status unspecified F33.9 Depression Type: major depressive disorder Major depression recurrence: recurrent Active/Remission status: remission status unspecified Anxiety disorder, unspecified F41.9 Time Spent (min) 60
== END ==
PROVIDERS: Visit Provider Counselor Mental Health
DX: F33.9 Major depressive disorder, recurrent, unspecified (principal); F41.9 Anxiety disorder, unspecified
CPT/HCPCS: 90837

== ENCOUNTER 2024-01-21 08:59 | Outpatient (REF) | payer OTHER, SELFPAY ==
--- NOTE | ~2024-01-21 | FL_ITS ---
EXAMINATION: XR FLUOROSCOPY UPPER GI WITH AIR CLINICAL INFORMATION: Preop evaluation prior to bariatric surgery. COMPARISON: None TECHNIQUE: Fluoroscopic air contrast upper GI examination was performed utilizing standard techniques with thin and thick barium and effervescent granules. Numerous spot images were obtained. FINDINGS: Dual and single contrast images of the esophagus demonstrate normal caliber, contour, and mucosal pattern. No evidence of stricture, mass, or ulcerations identified. Esophageal peristalsis was normal. A small type I hiatus hernia is suspected. A small amount of gastroesophageal reflux is seen in the distal esophagus, to the level of the dianne. Dual contrast and single contrast images of the stomach demonstrated normal contour and mucosal pattern without evidence of mass, ulceration, or other abnormality. Contrast freely passed into the gastric antrum and duodenal bulb without delay. Single and air-contrast images of the duodenal bulb demonstrate no abnormality. The duodenal sweep has a normal appearance, course, and mucosal fold appearance. No malrotation. The imaged proximal jejunum has a normal fold pattern and caliber. FLUOROSCOPY TIME: 4 minutes 43 seconds Number of Spot Images: 6 Number of Cine: 6 DOSE AREA PRODUCT: [id number] uGy-m2 (microgray-meter squared) FL/FL upper GI w air IMPRESSION: 1. Mild gastroesophageal reflux. 2. Suspect small type I hiatus hernia. 3. Remainder the examination is normal. This procedure was performed by Israel Martinez PA-C, and supervised by Dr. Jimenez
== END 2024-01-21 09:00 | disposition home or self-care (01) ==
LOC: HO.XRAY 08:59
PROVIDERS: Visit Provider Surgery
DX: E66.9 Obesity, unspecified (principal); Z68.37 Body mass index [BMI] 37.0-37.9, adult; J45.909 Unspecified asthma, uncomplicated; E11.9 Type 2 diabetes mellitus without complications
CPT/HCPCS: 74246

== ENCOUNTER → 2024-01-21 09:00 | Outpatient (BNV) | payer OTHER, SELFPAY | PROVIDERS: Visit Provider Physician Assistant Surgical | DX: E66.01 Morbid (severe) obesity due to excess calories (principal); Z01.818 Encounter for other preprocedural examination | CPT/HCPCS: 74246 ==